=== PATIENT | female | born 1955 | race Caucasian/White ===

== ENCOUNTER 2017-01-11 10:18 | Emergency (ER) | payer BC ==
[2017-01-11 10:34] VITALS: BP 141/86
--- NOTE | 2017-01-11 10:57 | EDM.PDOC ---
ED HPI GENERAL MEDICAL PROBLEM - General Chief Complaint: Lower Extremity Injury/Pain Stated Complaint: DIABETIC WITH INFECTION IN FOOT Time Seen by Provider: 01/11/17 10:42 Source of Information: Reports: Patient, RN Notes Reviewed - History of Present Illness INITIAL COMMENTS - FREE TEXT/NARRATIVE: 61 year old female with pain, redness worsening heel of R foot over the last 2 to 3 days. Traveling, not aware of any particular injury. She is insulin dep. diabetic. She thought maybe her shoe was putting too much stress on her foot, has started using an insert or heel pad. no drainage, no fever or chills. Right Knee Pain Score (Numeric/FACES): 7 - Related Data Allergies Allergy/AdvReac Type Severity Reaction Status Date / Time phenytoin [From Dilantin] Allergy Hallucinati Verified 01/11/17 10:33 ons Home Meds: Home Meds Ciprofloxacin HCl [Cipro] 500 mg PO BID #20 tablet 01/11/17 [Rx] Cyclobenzaprine [Flexeril] 10 mg PO BEDTIME 01/11/17 [History] Insulin Glarg,Human.Rec.Analog [LantUS Solostar] 58 units INJECT BID 01/11/17 [ History] Lisinopril [Zestril] 10 mg PO BEDTIME 01/11/17 [History] Meloxicam [Mobic] 15 mg PO ASDIRECTED PRN 01/11/17 [History] Omeprazole Magnesium [Prilosec Otc] 40 mg PO BEDTIME 01/11/17 [History] metFORMIN HCl [Metformin HCl] 1,000 mg PO BID 01/11/17 [History] Past Medical History [employer]ER History: Reports: Other (See Below) Other OB/BYN History: ovarian cyst Endocrine/Metabolic History: Reports: Diabetes, Type II - Past Surgical History GI Surgical History: Reports: Cholecystectomy Female Surgical History: Reports: Section Musculoskeletal Surgical History: Reports: Knee Replacement, Other (See Below) Other Musculoskeletal Surgeries/Procedures:: left leg surgery Social & Family History - Tobacco Use Smoking Status *Q: Never Smoker - Caffeine Use Caffeine Use: Reports: None - Recreational Drug Use Recreational Drug Use: No Review of Systems - Review of Systems Review Of Systems: See Below Constitutional: Denies: Chills, Fever Mouth/Throat: Reports: No Symptoms Respiratory: Denies: Shortness of Breath Cardiovascular: Denies: Chest Pain GI/Abdominal: Denies: Abdominal Pain, Nausea, Vomiting Musculoskeletal: Reports: Other (pain and redness heel of R foot) Skin: Reports: Erythema (heel of R foot) Neurological: Denies: Weakness ED EXAM, GENERAL - Physical Exam Exam: See Below General Appearance: Alert, No Apparent Distress Throat/Mouth: Normal Inspection Head: Atraumatic. No: Facial Swelling Neck: Supple Respiratory/Chest: No Respiratory Distress, Lungs Clear Cardiovascular: Tachycardia Extremities: Redness (heel area of R foot), Other (there is localized tenderness and mild swelling of the heel of the R foot, there is some very superfiscial sloughing of outer skin layer, ). No: Leg Pain (there is no proximal foot, ankle or leg swelling, erythema or tenderness) Neurological: No Motor/Sensory Deficits Skin Exam: Warm, Dry Course - Vital Signs Last Recorded V/S: Last Vital Signs Temp 98.3 F 01/11/17 10:25 Pulse 108 H 01/11/17 10:25 Resp 18 01/11/17 10:25 BP 141/86 H 01/11/17 10:25 Pulse Ox 98 01/11/17 10:25 Departure - Departure Time of Disposition: 10:52 Disposition: Home, Self-Care 01 Condition: Fair Clinical Impression: Cellulitis Qualifiers: Site of cellulitis: extremity Site of cellulitis of extremity: lower extremity Laterality: right Qualified Code(s): L03.115 - Cellulitis of right lower limb - Discharge Information Prescriptions: Ciprofloxacin HCl [Cipro] 500 mg PO BID #20 tablet Instructions: Cellulitis, Adult, [id number] Referrals: PCP,Not In Area [Primary Care Provider] - Forms: ED Department Discharge Additional Instructions: rest and elevate foot as much as possible, cipro antibiotic, 500 mg twice daily for 10 days. Continue to use heel pad or insert for extra padding and protection, continue to soak foot 2 to 3 times daily, have rechecked if not improving over the next 3 to 5 days or if symptoms worsening in any way.
== END 2017-01-11 11:00 | disposition home or self-care (01) ==
LOC: JD.ED 10:18
DX: L03.115 Cellulitis of right lower limb (principal); E11.9 Type 2 diabetes mellitus without complications; Z88.8 Allergy status to other drugs, medicaments and biological substances; Z79.84 Long term (current) use of oral hypoglycemic drugs; Z79.4 Long term (current) use of insulin
CPT/HCPCS: 99283; 99284